=== PATIENT | male | born 1990 | race African-American/Black ===

== ENCOUNTER 2016-05-26 19:50 | Emergency (ER) | payer OTHER ==
[~2016-05-26] VITALS: Ht 177.8 cm; Wt 81.8 kg
[~2016-05-26 19:50] MED LIST: LORTAB 5/500 501 TAB PO; NO HOME MEDICATIONS; crutches
[2016-05-26 20:05] VITALS: TEMP 98.3
[2016-05-26] MEDS ORDERED: INDERAL 10MG10 MG PO (20:12)
[2016-05-26 20:50] LABS: BASO % 0.2 % (0.0-2.0); EOS # 0.2 (0.0-0.7); GRAN # 2.9 (1.4-6.5); GRAN % 50.4 % (42.2-75.2); HEMATOCRIT 41.8 % (42.0-52.0); LYMPH % 35.6 % (20.0-51.0); MEAN CELL VOLUME 84 fl (80.0-100.0); MEAN CORPUSCULAR HEMOGLOBIN 28 pg (27.0-31.0); MEAN CORPUSCULAR HGB CONC 34 g/dl (33.0-37.0); MEAN PLATELET VOLUME 8.9 fl (7.4-10.4); MONO # 0.6 (0.1-0.6); MONO % 10.6 % (1.7-9.3); PLATELET COUNT 196 K/mm3 (130-400); RED BLOOD COUNT 4.98 M/mm3 (4.20-5.60); WHITE BLOOD COUNT 5.7 K/mm3 (4.8-10.8)
[2016-05-26 21:00] LABS: ADJUSTED CALCIUM 9.3 mg/dL (8.4-10.2); ALBUMIN 4.1 gm/dL (3.5-5.0); BILIRUBIN,TOTAL 0.7 mg/dL (0.0-1.0); CALCIUM 9.4 mg/dL (8.4-10.2); CREATININE, serum 0.77 mg/dL (0.66-1.25); POTASSIUM 3.9 mmol/L (3.4-5.0); TOTAL PROTEIN 6.9 gm/dL (6.4-8.2)
[2016-05-26 22:35] VITALS: BP 133/82; PULSE 91
== END 2016-05-26 22:35 | disposition home or self-care (01) ==
LOC: COL.ER 19:50
PROVIDERS: Emergency Medicine
DX: E05.00 Thyrotoxicosis with diffuse goiter without thyrotoxic crisis or storm (principal)

== ENCOUNTER 2016-06-30 02:43 | Emergency (ER) | payer OTHER ==
[~2016-06-30] VITALS: Ht 177.8 cm; Wt 79.5 kg
[~2016-06-30 02:43] MED LIST changes: +INDERAL 10MG10 MG PO
[2016-06-30] MEDS ORDERED: PREDNISONE10 MG PO (02:50)
[2016-06-30 03:17] LABS: BASO % 0.1 % (0.0-2.0); EOS # 0.1 (0.0-0.7); GRAN # 7.7 (1.4-6.5); GRAN % 70.1 % (42.2-75.2); HEMATOCRIT 44.7 % (42.0-52.0); LYMPH # 1.9 (1.2-3.4); LYMPH % 17.6 % (20.0-51.0); MEAN CELL VOLUME 83 fl (80.0-100.0); MEAN CORPUSCULAR HEMOGLOBIN 28 pg (27.0-31.0); MEAN CORPUSCULAR HGB CONC 34 g/dl (33.0-37.0); MEAN PLATELET VOLUME 9.4 fl (7.4-10.4); MONO # 1.2 (0.1-0.6); MONO % 10.9 % (1.7-9.3); PLATELET COUNT 245 K/mm3 (130-400); RED BLOOD COUNT 5.41 M/mm3 (4.20-5.60); REDCELL DISTRIBUTION WIDTH-CV 12.3 % (11.5-14.5); WHITE BLOOD COUNT 10.9 K/mm3 (4.8-10.8)
[2016-06-30 03:41] LABS: ADJUSTED CALCIUM 9.5 mg/dL (8.4-10.2); ALANINE AMINOTRANSFERASE 141 U/L (21-72); ALBUMIN 3.2 gm/dL (3.5-5.0); ALKALINE PHOSPHATASE 92 U/L (50-136); ANION GAP 12 mmol/L (7-16); BLOOD UREA NITROGEN 26 mg/dL (9-20); CALCIUM 8.9 mg/dL (8.4-10.2); CARBON DIOXIDE 26 mmol/L (22-30); CHLORIDE 100 mmol/L (98-107); CREATININE, serum 0.82 mg/dL (0.66-1.25); GLUCOSE 118 mg/dL (74-106); LIPASE 43 U/L (23-300); MAGNESIUM 1.4 mg/dL (1.6-2.3); POTASSIUM 4.1 mmol/L (3.4-5.0); SODIUM 138 mmol/L (137-145); TOTAL PROTEIN 5.8 gm/dL (6.4-8.2)
[2016-06-30 03:59] LABS: INFLUENZA B NEGATIVE
[2016-06-30 04:10] LABS: PH 5 (5-8); SQUAMOUS EPITHELIAL 0-2 /hpf; URINE APPEARANCE Clear; URINE BACTERIA None Seen /hpf; URINE BILIRUBIN Negative (NEGATIVE); URINE BLOOD 1+ (NEGATIVE); URINE COLOR Yellow; URINE GLUCOSE Negative (NEGATIVE); URINE KETONE Negative (NEGATIVE); URINE RBC 0-2 /hpf; URINE UROBILINOGEN Negative (NEGATIVE); URINE WBC 0-2 /hpf
[2016-06-30 04:11] LABS: THYROID STIMULATING HORMONE < 0.015 uIU/mL (0.465-4.680)
[2016-06-30 07:33] VITALS: BP 106/64; PULSE 95; TEMP 98.5
== END 2016-06-30 07:28 | disposition short-term general hospital (02) ==
LOC: COL.ER 02:43
PROVIDERS: Emergency Medicine
DX: E05.91 Thyrotoxicosis, unspecified with thyrotoxic crisis or storm (principal)
CPT/HCPCS: J1720; J2405; J2550; J3475; J7030; Q9967